=== PATIENT | female | born 1960 | race Caucasian/White ===

== ENCOUNTER 2018-03-11 19:59 | Emergency (ER) | payer SELFPAY ==
[~2018-03-11] VITALS: Ht 160 cm; Wt 68.0 kg
[2018-03-11] MEDS ORDERED: LORAZEPAM 1MG TABLET PO ONE (21:15)
[2018-03-11] MEDS ORDERED: TETANUS, DIPHTHERIA, PERTUSSIS VAC/PF 0.5ML (>7YR OLD) IM ONE (22:15)
[2018-03-11] MEDS ORDERED: IBUPROFEN 600MG TABLET PO ONE (22:15)
[2018-03-11 22:51] VITALS: BP 126/75
== END 2018-03-11 22:51 | disposition home or self-care (01) ==
LOC: ER 19:59
DX: S50.311A Abrasion of right elbow, initial encounter (principal); S00.81XA Abrasion of other part of head, initial encounter; W50.3XXA Accidental bite by another person, initial encounter; Y93.89 Activity, other specified; Y92.89 Other specified places as the place of occurrence of the external cause; Y99.8 Other external cause status
CPT/HCPCS: 90471; 90715; 99283

== ENCOUNTER 2020-02-29 00:06 | Emergency (ER) | payer OTHER ==
[~2020-02-29] VITALS: Ht 157.5 cm; Wt 83.0 kg
[2020-02-29] MEDS ORDERED: HYDROCODONE/ACETAMINOPHEN 5/325MG TABLET PO ONE (01:00)
[2020-02-29 01:45] VITALS: BP 122/99
== END 2020-02-29 02:26 | disposition home or self-care (01) ==
LOC: ER 00:06
DX: M17.11 Unilateral primary osteoarthritis, right knee (principal); R03.0 Elevated blood-pressure reading, without diagnosis of hypertension
CPT/HCPCS: 73562; 73610; 93971; 99284

== ENCOUNTER 2021-03-03 07:42 | Inpatient (IN) | payer OTHER ==
[~2021-03-03] VITALS: Ht 160 cm; Wt 86.2 kg
[2021-03-03] MEDS ORDERED: ONDANSETRON HCL 4MG/2ML INJ IV STA (08:00)
[2021-03-03] MEDS ORDERED: MORPHINE SULFATE 4 MG/ML CPJ (NOT FOR IM USE) IV STA (08:00)
[2021-03-03] MEDS ORDERED: MORPHINE SULFATE 2 MG/ML CPJ (NOT FOR IM USE) IV NR (08:35)
[2021-03-03 08:59] LABS: CLARITY URINE CLEAR (CLEAR); COLOR URINE YELLOW (YELLOW); KETONES URINE NEGATIVE (NEGATIVE); LEUKOCYTE ESTERASE URINE NEGATIVE (NEGATIVE); NITRITE URINE NEGATIVE (NEGATIVE); OCCULT BLOOD URINE NEGATIVE (NEGATIVE); PH URINE 5.5 (4.5-8.0); PROTEIN URINE 1+ (NEGATIVE); SPECIFIC GRAVITY URINE 1.024 (1.005-1.030); UROBILINOGEN URINE 0.2 E.U./dL (0.2-1.0)
[2021-03-03 09:00] LABS: BASOPHILS % 0.1 % (0.0-2.0); EOSINOPHILS % 0.6 % (0.0-5.0); HEMATOCRIT. 43.8 % (36.0-48.0); HEMOGLOBIN. 14.4 g/dL (12.0-16.0); LYMPHOCYTES % 10.8 % (20.0-50.0); MEAN CORPUSCULAR HEMOGLOBIN 29.7 pg (28.0-32.0); MEAN CORPUSCULAR VOLUME 90.1 fL (81.0-99.0); NEUTROPHILS % 86.5 % (40.0-76.0); PLATELET 249 x1000/uL (130-400); RED BLOOD CELL COUNT 4.86 mill/uL (4.2-5.4); RED CELL DISTRIBUTION WIDTH 13.4 % (11.6-14.6)
[2021-03-03 09:05] LABS: CHLORIDE 107 mEq/L (98-107)
[2021-03-03 09:10] LABS: INR 0.9
[2021-03-03] MEDS ORDERED: ZOLPIDEM TARTRATE 5MG TABLET PO PRN (10:45)
[2021-03-03] MEDS ORDERED: CLONIDINE 0.1MG TABLET PO PRN (10:45)
[2021-03-03] MEDS ORDERED: GUAIFENESIN 200MG/10ML SUGAR FREE UDC PO PRN (10:45)
[2021-03-03] MEDS ORDERED: IPRATROPIUM/ALBUTEROL 0.5-3(2.5)MG/3ML NEB NEB PRN (10:45)
[2021-03-03] MEDS ORDERED: MAGNESIUM/ALUMINUM HYDROXIDE/SIMETHICONE 30ML UDC PO PRN (10:45)
[2021-03-03] MEDS ORDERED: DOCUSATE SODIUM 100MG CAPSULE PO PRN (10:45)
[2021-03-03] MEDS ORDERED: ACETAMINOPHEN 325MG TABLET PO PRN (10:45)
[2021-03-03] MEDS ORDERED: NITROGLYCERIN 0.4MG TABLET SL SL PRN (10:45)
[2021-03-03 11:04] LABS: ETHANOL BLOOD < 10 mg/dL
[2021-03-03 11:07] LABS: HDL CHOLESTEROL 78 mg/dL (40-59); LDL CHOLESTEROL 156 mg/dL (5-100); TOTAL IRON BINDING CAPACITY 369 ug/dL (250-450)
[2021-03-03 11:11] VITALS: BP 94/43
[2021-03-03] MEDS: DILTIAZEM HCL 60MG TABLET PO SCH ×2 (11:13→18:47)
[2021-03-03] MEDS: ENOXAPARIN 40MG/0.4ML SYR SUBCUT SCH (11:20)
[2021-03-03] MEDS: ACETAMINOPHEN 325MG TABLET PO PRN (11:20)
[2021-03-03] MEDS: SODIUM CHLORIDE 0.9% 1,000 ML IV SCH ×2 (11:21→22:07)
[2021-03-03 11:39] LABS: VITAMIN B12 SERUM > 2000.0 pg/mL (211-911)
[2021-03-03 12:00] VITALS: BP 94/43
[2021-03-03] MEDS: ONDANSETRON HCL 4MG/2ML INJ IV PRN (14:29)
[2021-03-03] MEDS: TRAMADOL 50MG TABLET PO PRN ×2 (14:30→22:18)
[2021-03-03 16:00] VITALS: BP 110/58
[2021-03-03 16:37] LABS: CREATINE KINASE 100 IU/L (26-192)
[2021-03-03 16:38] LABS: CREATINE KINASE MB FRACTION < 1.0 ng/mL (0.5-3.6)
[2021-03-03 17:06] LABS: *AMPHETAMINES SCREEN URINE NEGATIVE (NEGATIVE); *BARBITURATES SCREEN URINE NEGATIVE (NEGATIVE); CANNABINOID URINE SCREEN NEGATIVE (NEGATIVE)
[2021-03-03 17:07] LABS: *BENZODIAZEPINES SCREEN URINE NEGATIVE (NEGATIVE); *COCAINE SCREEN URINE NEGATIVE (NEGATIVE); METHADONE URINE SCREEN NEGATIVE (NEGATIVE); OPIATES URINE SCREEN PRESUMTIVE POSITIVE (NEGATIVE); PHENCYCLIDINE URINE SCREEN NEGATIVE (NEGATIVE)
[2021-03-03] MEDS: KETOROLAC 15MG/ML VIAL IV PRN (18:49)
[2021-03-03 20:16] VITALS: BP 103/51
[2021-03-03] MEDS: FAMOTIDINE 20MG TABLET PO SCH (22:07)
[2021-03-03 23:49] VITALS: BP 103/50
[2021-03-04 00:51] LABS: CREATINE KINASE 83 IU/L (26-192)
[2021-03-04 00:52] LABS: CREATINE KINASE MB FRACTION < 1.0 ng/mL (0.5-3.6)
[2021-03-04 04:59] VITALS: BP 106/53
[2021-03-04] MEDS: DILTIAZEM HCL 60MG TABLET PO SCH ×5 (06:00→17:53)
[2021-03-04] MEDS: SODIUM CHLORIDE 0.9% 1,000 ML IV SCH ×3 (06:51→16:45)
[2021-03-04 07:07] LABS: BASOPHILS % 0.3 % (0.0-2.0); EOSINOPHILS % 1.6 % (0.0-5.0); HEMATOCRIT. 34.7 % (36.0-48.0); HEMOGLOBIN. 11.7 g/dL (12.0-16.0); LYMPHOCYTES % 24.1 % (20.0-50.0); MEAN CORPUSCULAR HEMOGLOBIN 29.8 pg (28.0-32.0); MEAN CORPUSCULAR VOLUME 88.5 fL (81.0-99.0); MEAN PLATELET VOLUME 8.7 fl (7.4-10.4); MONOCYTES % 6.6 % (2.0-8.0); NEUTROPHILS % 67.4 % (40.0-76.0); PLATELET 207 x1000/uL (130-400); RED BLOOD CELL COUNT 3.92 mill/uL (4.2-5.4); RED CELL DISTRIBUTION WIDTH 13.6 % (11.6-14.6)
[2021-03-04 07:24] LABS: CHLORIDE 107 mEq/L (98-107)
[2021-03-04 07:30] LABS: PHOSPHORUS 2.1 mg/dL (2.5-4.9)
[2021-03-04 07:32] LABS: AMYLASE 40 IU/L (25-115)
[2021-03-04 08:00] VITALS: BP 114/59
[2021-03-04] MEDS: FAMOTIDINE 20MG TABLET PO SCH ×2 (08:36→20:58)
[2021-03-04] MEDS: ENOXAPARIN 40MG/0.4ML SYR SUBCUT SCH (08:37)
[2021-03-04] MEDS: ACETAMINOPHEN 325MG TABLET PO PRN (08:57)
[2021-03-04 12:00] VITALS: BP 115/57
[2021-03-04] MEDS ORDERED: POTASSIUM PHOS,M-BASIC-D-BASIC 10 MMOL in DEXT 5% WATER 246.6667 ML IV SCH (15:00)
[2021-03-04 16:00] VITALS: BP 103/58
[2021-03-04] MEDS: KETOROLAC 15MG/ML VIAL IV PRN (16:17)
[2021-03-04 20:00] VITALS: BP 109/59
[2021-03-04] MEDS: TRAMADOL 50MG TABLET PO PRN (20:58)
[2021-03-05] VITALS: BP 109/50
[2021-03-05] MEDS: SODIUM CHLORIDE 0.9% 1,000 ML IV SCH ×2 (02:45→12:45)
[2021-03-05 04:00] VITALS: BP 106/57
[2021-03-05] MEDS: ONDANSETRON HCL 4MG/2ML INJ IV PRN (05:33)
[2021-03-05] MEDS: DILTIAZEM HCL 60MG TABLET PO SCH ×3 (05:33→13:18)
[2021-03-05] MEDS: KETOROLAC 15MG/ML VIAL IV PRN (05:33)
[2021-03-05 08:00] VITALS: BP 115/66
[2021-03-05] MEDS: FAMOTIDINE 20MG TABLET PO SCH (09:49)
[2021-03-05] MEDS: ENOXAPARIN 40MG/0.4ML SYR SUBCUT SCH (09:51)
[2021-03-05 12:00] VITALS: BP 129/75
[2021-03-05 15:29] VITALS: BP 129/75
== END 2021-03-05 15:52 | disposition home or self-care (01) | DRG 440 ==
LOC: ER 07:42 → 6EST 09:45 → ENRESERV 10:01
PROVIDERS: ADMIT Internal Medicine; ATTEND Internal Medicine
DX: K85.90 Acute pancreatitis without necrosis or infection, unspecified (principal); Z90.710 Acquired absence of both cervix and uterus; E66.9 Obesity, unspecified; K76.0 Fatty (change of) liver, not elsewhere classified; I10 Essential (primary) hypertension; K57.30 Diverticulosis of large intestine without perforation or abscess without bleeding; Z68.33 Body mass index [BMI] 33.0-33.9, adult
CPT/HCPCS: 36415; 74176; 80053; 80061; 80305; 80320; 81003; 82150; 82550; 82553; 82607; 82746; 83036; 83540; 83550; 83735; 84100; 84484; 85025; 93005; 93970; 99285; J1650; J1885; J2270; J2405; J3490; J7060; G0480

== ENCOUNTER 2022-11-15 18:39 | Emergency (ER) | payer OTHER ==
[~2022-11-15] VITALS: Ht 162.6 cm; Wt 90.0 kg
[2022-11-15 18:52] VITALS: O2SAT 99
[2022-11-15 20:57] LABS: CLARITY URINE CLEAR (CLEAR); COLOR URINE YELLOW (YELLOW); KETONES URINE NEGATIVE (NEGATIVE); LEUKOCYTE ESTERASE URINE TRACE (NEGATIVE); NITRITE URINE NEGATIVE (NEGATIVE); OCCULT BLOOD URINE NEGATIVE (NEGATIVE); PROTEIN URINE NEGATIVE (NEGATIVE); SPECIFIC GRAVITY URINE 1.013 (1.005-1.030); UROBILINOGEN URINE 0.2 E.U./dL (0.2-1.0)
[2022-11-15] MEDS ORDERED: METHOCARBAMOL 500MG TABLET PO ONE (21:00)
[2022-11-15] MEDS ORDERED: KETOROLAC 30MG/ML VIAL IM ONE (21:00)
[2022-11-15] MEDS ORDERED: ACETAMINOPHEN 325MG TABLET PO ONE (21:00)
[2022-11-15 22:02] LABS: BASOPHILS % 1.2 % (0.0-2.0); EOSINOPHILS % 1.2 % (0.0-5.0); HEMATOCRIT. 39.3 % (36.0-48.0); HEMOGLOBIN. 13.1 g/dL (12.0-16.0); LYMPHOCYTES % 42.6 % (20.0-50.0); MEAN CORPUSCULAR HEMOGLOBIN 29.1 pg (28.0-32.0); MEAN CORPUSCULAR VOLUME 87.4 fL (81.0-99.0); MEAN PLATELET VOLUME 8.3 fl (7.4-10.4); MONOCYTES % 7.8 % (2.0-8.0); NEUTROPHILS % 47.2 % (40.0-76.0); PLATELET 329 x1000/uL (130-400); RED CELL DISTRIBUTION WIDTH 13.9 % (11.6-14.6)
[2022-11-15 22:16] LABS: CHLORIDE 105 mEq/L (98-107)
[2022-11-15] MEDS ORDERED: IOHEXOL-300 100 ML BOTTLE ONE (23:07)
[2022-11-16 03:08] VITALS: BP 167/72; PULSE 68; RESP 16; TEMP 98.7
== END 2022-11-16 04:07 | disposition left against medical advice (07) ==
LOC: ER 18:39
DX: M54.50 Low back pain, unspecified (principal); R30.0 Dysuria; Z90.710 Acquired absence of both cervix and uterus
CPT/HCPCS: 80053; 81003; 83605; 85025; 36415; 74177; 96372; 99285; Q9967; J1885; Z7610